=== PATIENT | female | born 1990 | race Caucasian/White ===

== ENCOUNTER 2024-02-26 08:15 | Outpatient (RCR) | payer OTHER, SELFPAY ==
--- NOTE | 2024-02-03 16:00 | OT.OP.EVAL ---
Visit Care Team Role Provider Type EMERALD Mendiola Attending Provider Non-Staff Family Provider Primary Care Provider Referring Provider Specialty: Family Practice Address: [facility] [address], [place], [address] Email: Occupational Therapy Initial Evaluation OT Outpatient Adult Evaluation Start: 02/03/24 15:55 Freq: Status: Active Protocol: Document 02/03/24 15:55 AMS (Rec: 02/03/24 16:16 AMS [id number]) General Information - Adult Insurance Information [employer]; Blake Gaines MD; Pre-auth not required Visit Start Time 14:30 Visit Stop Time 15:15 Treatment Setting Outpatient Care Note Type Initial Evaluation Referring Physician Blake Gaines DNP, PATIENT CARE ( Doctor of Nursing Practice), ( Family Nurse Pract) Goals Cardiology Coordinator Goals 1. Maria A will be modified independent with execution of home exercise program utilizing provided written and /or visual instructions. 2. Maria A will present with improved ability to engage in functional and/or meaningful activities; this will be evidenced by the followina. Maria A will obtain a QuickDASH UE Outcome Measure Score less than or equal to 50 .00 (compared to initial 65.91 score). 2b. Maria A will obtain a QuickDASH Work Module Score less than or equal to 55.00 ( compared to initial 68.75 score). 2c. Maria A will obtain a QuickDASH Sports/Performing Arts Module Score (dancing/ working out) less than or equal to 40.00 (compared to initial 50.00 score). Assessment/Plan Treatment Assessment Maria A is 33 y.o.; R hand dominant; she was referred to outpatient OT d/t R wrist pain . 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 She has a high-low desk and is trying to use her left hand more w/ daily tasks (including feeding herself L handed w/ chopsticks). She had 4 wks of PT treatment in 2019; treatment was limited d/t insurance benefits. She has 2 [id number]-dslsdms braces; limited wearing of braces w/ noted allergic skin reaction to x 1 brace. She has a wrist support on her desk for R handed use; has tried using mouse w/ L hand during 'slower ' work demand times. Medical history is significant for depression, headahces, bilateral ear tubes placed, jaw pain. Whole Body Pain Assessment Grid completed; indication of 3 out of 10 pain morning, 7 out of 10 pain night w/ noted range between 3 -7 depending on task or activities relative to the volar/dorsal surfaces of the R ulnar surface of wrist/ forearm. QuickDASH UE Outcome Measure Score = 65.91; QuickDASH Work Module Score = 68.75; QuickDASH Sports/ Performing Arts Module Score ( dancing/working out) = 50.00. Goniometer AROM measurements were as follows: 0-65 degrees R wrist flex vs 0-71 degrees L wrist flex; 0-70 degrees R wrist ext vs 0-80 degrees L wrist ext; 0-[address] vs 0-[address]; 0-30 degrees bilateral wrist UD. Wrist MMT Strength = 5/5 MMT for bilateral wrist flex, wrist ext, wrist RD, wrist UD. Dynamometer II Strength Testing Results with elbow in 90 degrees Flexion = R banana expert 43 .0# of force (compared to same -aged peers 78.7 +/- 19.2# of force) versus L banana expert 55.0# of force (compared to same-aged peers 68.0 +/- 17.7# of force) . Dynamometer II Strength Testing Results with Elbow Extended = R banana expert 30.0# of force versus L banana expert 63.0# of force. Lateral Mosqueda Pinch = R lateral pinch 11.5# of force (compared to same-aged peers 18.7 +/- 3 .0# of force) versus L lateral pinch 13.5# of force ( compared to same-aged peers 17 .8 +/- 3.6# of force). Tip Pinch = R tip pinch 5.5# of force (compared to same-aged peers 12.6 +/- 3.0# of force) versus L tip pinch 5.0# of force (compared to same-aged peers 11.7 +/- 2.8# of force). 3-Jaw Pinch = R 3-jaw pinch 6 .5# of force (compared to same -aged peers 19.3 +/- 5.0# of force) versus L 3-jaw pinch 8. 0# of force (compared to same- aged peers 18.1 +/- 4.8# of force). Rec OT develops home exercise program (theraputty, ROM exercises), discusses joint protection and discusses conservative measures of pain management. Length of treatment (weeks) 6 Plan of Care Start Date 02/04/24 Plan of Care End Date 03/17/24 Treatment Frequency Once a Week Therapeutic Contents Active Range of Motion, Adaptive Equipment Education, Client Education,Functional Activities,Home Exercise Program,Joint Protection, Education,Neurodevelopment Treatment,Neuromuscular Re- Education,Self-Care,Stretching /Flexibility Activities, Therapeutic Activities, Therapeutic Exercises, Modalities Modalities As Needed,As Prescribed Additional Types of Modalities Heat/Ice/Contrast Baths/ Ultrasound/Paraffin Bath
--- NOTE | 2024-02-12 09:11 | OT.OP.TRT ---
Visit Care Team Role Provider Type EMERALD Mendiola Attending Provider Non-Staff Family Provider Primary Care Provider Referring Provider Specialty: Family Practice Address: [facility] [address], [place], [address] Email: Occupational Therapy Treatment Note OT Outpatient Treatment Note - Adult Start: 02/03/24 15:55 Freq: Status: Active Protocol: Document 02/12/24 09:00 AMS (Rec: 02/12/24 09:11 AMS [id number]) OT Outpatient Adult Treatment Note Session Time Visit Start Time 08:15 Visit Stop Time 08:55 Visit Information Plan of Care Dates 02/04/24 - 03/17/24 Insurance Information [employer]; Blake Gaines MD; Pre-auth not required Setting Treatment Setting Outpatient Care Visit Type Note Type Treatment Note General Information General Information Maria A is 33 y.o.; R hand dominant; she was referred to outpatient OT d/t R wrist pain . 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 She has a high-low desk and is trying to use her left hand more w/ daily tasks (including feeding herself L handed w/ chopsticks). She had 4 wks of PT treatment in 2019; treatment was limited d/t insurance benefits. She has 2 vvet-bzp-xmughuw braces; limited wearing of braces w/ noted allergic skin reaction to x 1 brace. She has a wrist support on her desk for R handed use; has tried using mouse w/ L hand during 'slower ' work demand times. Medical history is significant for depression, headahces, bilateral ear tubes placed, jaw pain. Whole Body Pain Assessment Grid completed; indication of 3 out of 10 pain morning, 7 out of 10 pain night w/ noted range between 3 -7 depending on task or activities relative to the volar/dorsal surfaces of the R ulnar surface of wrist/ forearm. QuickDASH UE Outcome Measure Score = 65.91; QuickDASH Work Module Score = 68.75; QuickDASH Sports/ Performing Arts Module Score ( dancing/working out) = 50.00. - Subjective Identification Type Name Observations Maria A reported some soreness in the R wrist secondary to having to move boxes within her storage unit. Open [employer] project - use of yarn for hair ; also finishing corset component of [employer] ([employer] theme). - Objective Objective Measurements Please refer to below for progress towards meeting established OT goals: School Child Care Attendant Goals 1. Maria A will be modified independent with execution of home exercise program utilizing provided written and /or visual instructions. 2. Maria A will present with improved ability to engage in functional and/or meaningful activities; this will be evidenced by the followina. Maria A will obtain a QuickDASH UE Outcome Measure Score less than or equal to 50 .00 (compared to initial 65.91 score). 2b. Maria A will obtain a QuickDASH Work Module Score less than or equal to 55.00 ( compared to initial 68.75 score). 2c. Maria A will obtain a QuickDASH Sports/Performing Arts Module Score (dancing/ working out) less than or equal to 40.00 (compared to initial 50.00 score). - Exercises 3 Descriptor Wrist strengthening. Wrist ext. Seated. Elbow 90 degrees flex. Use of proximal thigh for stabilization. TB #2 . 3 x 10. Wrist flex. Seated. Elbow 90 degrees flex. Use of proximal thigh for stabilization. TB #2 . [address] Seated. Elbow slightly flexed. Use of TT. TB #2. 3 x 10. Wrist UD. Seated. Elbow slightly flexed. Use of TT. TB #2. 3 x 10. 2 Descriptor UEB. x 5 min. forwards. seated. x 8 min. backwards. seated. 1 Descriptor PROM. Passive wrist ext. Passive wrist flex. x 2. 20-30 sec hold. Passive wrist RD. Passive wrist UD. x 2. 20-30 sec hold. - Assessment Assessment of Improvement Advanced HEP; please see below for details. Recommend introducing theraputty in next treatment session, as well as discussing basic joint protection principles. Rec OT develops home exercise program (theraputty, ROM exercises), discusses joint protection and discusses conservative measures of pain management. Home Exercise Program 02/12/24 = Provided w/ written and visual instructions for passive wrist flex/ext. Rec daily 1-2 and/or as needed. Rec hold for 20-30 sec per stretch. Also provided w/ TB # 2 for home use for wrist strengthening; provided w/ visual and written instructions for resisted wrist flex/ext. Written instructions provided for resisted wrist RD/UD. Written and visual instructions for HEP to be scanned into EMR once front end manager staff are able to do so. - Plan Therapy Recommendations Advance per Rehabilitation Protocol
--- NOTE | 2024-02-18 12:32 | OT.OP.TRT ---
Visit Care Team Role Provider Type EMERALD Mendiola Attending Provider Non-Staff Family Provider Primary Care Provider Referring Provider Specialty: Family Practice Address: [facility] [address], [place], [address] Email: Occupational Therapy Treatment Note OT Outpatient Treatment Note - Adult Start: 02/03/24 15:55 Freq: Status: Active Protocol: Document 02/18/24 12:25 AMS (Rec: 02/18/24 12:32 AMS [id number]) OT Outpatient Adult Treatment Note Session Time Visit Start Time 09:00 Visit Stop Time 09:42 Visit Information Plan of Care Dates 02/04/24 - 03/17/24 Insurance Information [employer]; Blake Gaines MD; Pre-auth not required Setting Treatment Setting Outpatient Care Visit Type Note Type Treatment Note General Information General Information Maria A is 33 y.o.; R hand dominant; she was referred to outpatient OT d/t R wrist pain . 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 She has a high-low desk and is trying to use her left hand more w/ daily tasks (including feeding herself L handed w/ chopsticks). She had 4 wks of PT treatment in 2019; treatment was limited d/t insurance benefits. She has 2 hnck-ngy-cvbsajz braces; limited wearing of braces w/ noted allergic skin reaction to x 1 brace. She has a wrist support on her desk for R handed use; has tried using mouse w/ L hand during 'slower ' work demand times. Medical history is significant for depression, headahces, bilateral ear tubes placed, jaw pain. Whole Body Pain Assessment Grid completed; indication of 3 out of 10 pain morning, 7 out of 10 pain night w/ noted range between 3 -7 depending on task or activities relative to the volar/dorsal surfaces of the R ulnar surface of wrist/ forearm. QuickDASH UE Outcome Measure Score = 65.91; QuickDASH Work Module Score = 68.75; QuickDASH Sports/ Performing Arts Module Score ( dancing/working out) = 50.00. - Subjective Identification Type Name Observations Maria A reported sewing for 8 hours previous day; pulsing pain and uncomfortable were descriptors of R wrist. Report of taking Ibuprofen this morning; however, med 'hadn't kicked in' by time of session. She is going on vacation w/ her to [place]. She cont to work on her [employer]. (+) awareness of trying to keep her wrist in neutral when completing tasks ; however, this has been difficulty d/t the nature of beadwork she has to do on her costume. - Objective Objective Measurements Please refer to below for progress towards meeting established OT goals: Bearing Ring Assembler Goals 1. Maria A will be modified independent with execution of home exercise program utilizing provided written and /or visual instructions. 2. Maria A will present with improved ability to engage in functional and/or meaningful activities; this will be evidenced by the followina. Maria A will obtain a QuickDASH UE Outcome Measure Score less than or equal to 50 .00 (compared to initial 65.91 score). 2b. Maria A will obtain a QuickDASH Work Module Score less than or equal to 55.00 ( compared to initial 68.75 score). 2c. Maria A will obtain a QuickDASH Sports/Performing Arts Module Score (dancing/ working out) less than or equal to 40.00 (compared to initial 50.00 score). - Exercises 5 Descriptor Angled trampoline. 2.2# R handed throw and 2 handed catch. x 50 reps. 2.2# L handed throw and 2 handed catch. x 50 reps. 4 Descriptor Forearm strengthening. Weighted ball pass. R <-> L. 3 .3# spherical ball. 5 x 10. 3 Descriptor Wrist strengthening. Wrist ext. Seated. Elbow 90 degrees flex. Use of proximal thigh for stabilization. TB #2 . 3 x 10. Wrist flex. Seated. Elbow 90 degrees flex. Use of proximal thigh for stabilization. TB #2 . [address] Seated. Elbow slightly flexed. Use of TT. TB #2. 3 x 10. Wrist UD. Seated. Elbow slightly flexed. Use of TT. TB #2. 3 x 10. 2 Descriptor UEB. x 10 min. forwards. seated. 1 Descriptor PROM. Passive wrist ext. Passive wrist flex. x 2. 20-30 sec hold. Passive wrist RD. Passive wrist UD. x 2. 20-30 sec hold. Tendon glides. x 5 repetitions . - Assessment Assessment of Improvement Reviewed HEP w/ TB #2; advanced therapeutic exercises /activities completed in treatment session. Verbalized awareness of need to keep R wrist in neutral as much as she can w/ various task completion. Recommend introducing theraputty in next treatment session, as well as discussing basic joint protection principles. Rec OT develops home exercise program (theraputty, ROM exercises), discusses joint protection and discusses conservative measures of pain management. Home Exercise Program 02/12/24 = Provided w/ written and visual instructions for passive wrist flex/ext. Rec daily 1-2 and/or as needed. Rec hold for 20-30 sec per stretch. Also provided w/ TB # 2 for home use for wrist strengthening; provided w/ visual and written instructions for resisted wrist flex/ext. Written instructions provided for resisted wrist RD/UD. Written and visual instructions for HEP to be scanned into EMR once supervisor front staff are able to do so. - Plan Therapy Recommendations Advance per Rehabilitation Protocol
--- NOTE | 2024-02-26 09:22 | OT.OP.TRT ---
Visit Care Team Role Provider Type EMERALD Mendiola Attending Provider Non-Staff Family Provider Primary Care Provider Referring Provider Specialty: Family Practice Address: [facility] [address], [place], [address] Email: Occupational Therapy Treatment Note OT Outpatient Treatment Note - Adult Start: 02/03/24 15:55 Freq: Status: Active Protocol: Document 02/26/24 09:17 AMS (Rec: 02/26/24 09:22 AMS [id number]) OT Outpatient Adult Treatment Note Session Time Visit Start Time 08:15 Visit Stop Time 09:00 Visit Information Plan of Care Dates 02/04/24 - 03/17/24 Insurance Information [employer]; Blake Gaines MD; Pre-auth not required Setting Treatment Setting Outpatient Care Visit Type Note Type Treatment Note General Information General Information Maria A is 33 y.o.; R hand dominant; she was referred to outpatient OT d/t R wrist pain . 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 She has a high-low desk and is trying to use her left hand more w/ daily tasks (including feeding herself L handed w/ chopsticks). She had 4 wks of PT treatment in 2019; treatment was limited d/t insurance benefits. She has 2 qcyt-yto-rrvrskd braces; limited wearing of braces w/ noted allergic skin reaction to x 1 brace. She has a wrist support on her desk for R handed use; has tried using mouse w/ L hand during 'slower ' work demand times. Medical history is significant for depression, headahces, bilateral ear tubes placed, jaw pain. Whole Body Pain Assessment Grid completed; indication of 3 out of 10 pain morning, 7 out of 10 pain night w/ noted range between 3 -7 depending on task or activities relative to the volar/dorsal surfaces of the R ulnar surface of wrist/ forearm. QuickDASH UE Outcome Measure Score = 65.91; QuickDASH Work Module Score = 68.75; QuickDASH Sports/ Performing Arts Module Score ( dancing/working out) = 50.00. - Subjective Identification Type Name Observations Maria A reported sewing for 8 hours previous day; pulsing pain and uncomfortable were descriptors of R wrist. Report of taking Ibuprofen this morning; however, med 'hadn't kicked in' by time of session. She is going on vacation w/ her to [place]. She cont to work on her [employer]. (+) awareness of trying to keep her wrist in neutral when completing tasks ; however, this has been difficulty d/t the nature of beadwork she has to do on her costume. - Objective Objective Measurements Please refer to below for progress towards meeting established OT goals: Pneumatic Tool Operator Goals 1. Maria A will be modified independent with execution of home exercise program utilizing provided written and /or visual instructions. 2. Maria A will present with improved ability to engage in functional and/or meaningful activities; this will be evidenced by the followina. Maria A will obtain a QuickDASH UE Outcome Measure Score less than or equal to 50 .00 (compared to initial 65.91 score). 2b. Maria A will obtain a QuickDASH Work Module Score less than or equal to 55.00 ( compared to initial 68.75 score). 2c. Maria A will obtain a QuickDASH Sports/Performing Arts Module Score (dancing/ working out) less than or equal to 40.00 (compared to initial 50.00 score). - Exercises 5 Descriptor Angled trampoline. 2.2# R handed throw and 2 handed catch. x 50 reps. 2.2# L handed throw and 2 handed catch. x 50 reps. 4 Descriptor Forearm strengthening. Weighted ball pass. R <-> L. 3 .3# spherical ball. 5 x 10. 3 Descriptor Wrist strengthening. Wrist ext. Seated. Elbow 90 degrees flex. Use of proximal thigh for stabilization. TB #2 . 3 x 10. Wrist flex. Seated. Elbow 90 degrees flex. Use of proximal thigh for stabilization. TB #2 . [address] Seated. Elbow slightly flexed. Use of TT. TB #2. 3 x 10. Wrist UD. Seated. Elbow slightly flexed. Use of TT. TB #2. 3 x 10. 2 Descriptor UEB. x 10 min. forwards. seated. 1 Descriptor PROM. Passive wrist ext. Passive wrist flex. x 2. 20-30 sec hold. Passive wrist [address]. Passive wrist UD. x 2. 20-30 sec hold. Tendon glides. x 5 repetitions . - Assessment Assessment of Improvement Reviewed HEP w/ TB #2 and passive range of motion exercises/tendon glides; also instructed in passive wrist/ digit ext w/ slight UD or RD to provide increased stretch to radial and/or ulnar compartments of volar surfaces of R wrist. Verbalized awareness of need to keep R wrist in neutral as much as she can w/ various task completion. R wrist brace reportedly does not provide relief; intermittently ices the wrist. (+) awareness of sitting slightly distal to work desk d/t chords beneath desk. Uses chord based mouse. (+) considering requesting stand-up desk at work; has to speak to publication manager to explore this option for work station. Recommend introducing theraputty in next treatment session, as well as discussing basic joint protection principles. Could also explore manual w/ use of ball; currently executing manual w/ L hand intermittently. Rec OT develops home exercise program (theraputty, ROM exercises), discusses joint protection and discusses conservative measures of pain management. Home Exercise Program 02/12/24 = Provided w/ written and visual instructions for passive wrist flex/ext. Rec daily 1-2 and/or as needed. Rec hold for 20-30 sec per stretch. Also provided w/ TB # 2 for home use for wrist strengthening; provided w/ visual and written instructions for resisted wrist flex/ext. Written instructions provided for resisted wrist RD/UD. Written and visual instructions for HEP to be scanned into EMR once front desk lead staff are able to do so. - Plan Therapy Recommendations Advance per Rehabilitation Protocol
--- NOTE | 2024-03-28 10:37 | OT.OP.DC ---
Visit Care Team Role Provider Type EMERALD Mendiola Attending Provider Non-Staff Family Provider Primary Care Provider Referring Provider Address: [facility] [id number], [place], [address] Email: OT Outpatient OT Outpatient Adult Evaluation Start: 02/03/24 15:55 Freq: Status: Active Protocol: Document 02/03/24 15:55 AMS (Rec: 02/03/24 16:16 AMS [id number]) General Information - Adult Visit Information Insurance Information [employer]; Blake Gaines MD; Pre-auth not required Session Time Visit Start Time 14:30 Visit Stop Time 15:15 Setting Treatment Setting Outpatient Care Visit Type Note Type Initial Evaluation Referral Referring Physician Blake Gaines DNP, PIPELINE SUPERINTENDENT ( Doctor of Nursing Practice), ( Family Nurse Pract) Goals Group Home Goals Group Home Goals 1. Maria A will be modified independent with execution of home exercise program utilizing provided written and /or visual instructions. 2. Maria A will present with improved ability to engage in functional and/or meaningful activities; this will be evidenced by the followina. Maria A will obtain a QuickDASH UE Outcome Measure Score less than or equal to 50 .00 (compared to initial 65.91 score). 2b. Maria A will obtain a QuickDASH Work Module Score less than or equal to 55.00 ( compared to initial 68.75 score). 2c. Maria A will obtain a QuickDASH Sports/Performing Arts Module Score (dancing/ working out) less than or equal to 40.00 (compared to initial 50.00 score). Assessment/Plan Assessment Treatment Assessment Maria A is 33 y.o.; R hand dominant; she was referred to outpatient OT d/t R wrist pain . 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 She has a high-low desk and is trying to use her left hand more w/ daily tasks (including feeding herself L handed w/ chopsticks). She had 4 wks of PT treatment in 2019; treatment was limited d/t insurance benefits. She has 2 oxfy-bme-toydloj braces; limited wearing of braces w/ noted allergic skin reaction to x 1 brace. She has a wrist support on her desk for R handed use; has tried using mouse w/ L hand during 'slower ' work demand times. Medical history is significant for depression, headahces, bilateral ear tubes placed, jaw pain. Whole Body Pain Assessment Grid completed; indication of 3 out of 10 pain morning, 7 out of 10 pain night w/ noted range between 3 -7 depending on task or activities relative to the volar/dorsal surfaces of the R ulnar surface of wrist/ forearm. QuickDASH UE Outcome Measure Score = 65.91; QuickDASH Work Module Score = 68.75; QuickDASH Sports/ Performing Arts Module Score ( dancing/working out) = 50.00. Goniometer AROM measurements were as follows: 0-65 degrees R wrist flex vs 0-71 degrees L wrist flex; 0-70 degrees R wrist ext vs 0-80 degrees L wrist ext; 0-[address] vs 0-[address]; 0-30 degrees bilateral wrist UD. Wrist MMT Strength = 5/5 MMT for bilateral wrist flex, wrist ext, wrist RD, wrist UD. Dynamometer II Strength Testing Results with elbow in 90 degrees Flexion = R satellite instruction facilitator 43 .0# of force (compared to same -aged peers 78.7 +/- 19.2# of force) versus L satellite instruction facilitator 55.0# of force (compared to same-aged peers 68.0 +/- 17.7# of force) . Dynamometer II Strength Testing Results with Elbow Extended = R satellite instruction facilitator 30.0# of force versus L satellite instruction facilitator 63.0# of force. Lateral [place] Pinch = R lateral pinch 11.5# of force (compared to same-aged peers 18.7 +/- 3 .0# of force) versus L lateral pinch 13.5# of force ( compared to same-aged peers 17 .8 +/- 3.6# of force). Tip Pinch = R tip pinch 5.5# of force (compared to same-aged peers 12.6 +/- 3.0# of force) versus L tip pinch 5.0# of force (compared to same-aged peers 11.7 +/- 2.8# of force). 3-Jaw Pinch = R 3-jaw pinch 6 .5# of force (compared to same -aged peers 19.3 +/- 5.0# of force) versus L 3-jaw pinch 8. 0# of force (compared to same- aged peers 18.1 +/- 4.8# of force). Rec OT develops home exercise program (theraputty, ROM exercises), discusses joint protection and discusses conservative measures of pain management. Plan Length of treatment (weeks) 6 Plan of Care Start Date 02/04/24 Plan of Care End Date 03/17/24 Treatment Frequency Once a Week Therapeutic Contents Active Range of Motion, Adaptive Equipment Education, Client Education,Functional Activities,Home Exercise Program,Joint Protection, Education,Neurodevelopment Treatment,Neuromuscular Re- Education,Self-Care,Stretching /Flexibility Activities, Therapeutic Activities, Therapeutic Exercises, Modalities Modalities As Needed,As Prescribed Additional Types of Modalities Heat/Ice/Contrast Baths/ Ultrasound/Paraffin Bath Functional Wrist/Hand Scan Hand Side Sensory Assessment Sensory Profile2 OT Outpatient Treatment Note - Adult Start: 02/03/24 15:55 Freq: Status: Active Protocol: Document 03/28/24 10:35 AMS (Rec: 03/28/24 10:37 AMS [id number]) OT Outpatient Adult Treatment Note Visit Information Plan of Care Dates 02/04/24 - 03/17/24 Insurance Information Mena Infante; Blake Gaines MD; Pre-auth not required Setting Treatment Setting Outpatient Care Visit Type Note Type Discharge Summary General Information General Information Maria A is 33 y.o.; R hand dominant; she was referred to outpatient OT d/t R wrist pain . 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 She has a high-low desk and is trying to use her left hand more w/ daily tasks (including feeding herself L handed w/ chopsticks). She had 4 wks of PT treatment in 2019; treatment was limited d/t insurance benefits. She has 2 fdki-wlo-jqbrhgg braces; limited wearing of braces w/ noted allergic skin reaction to x 1 brace. She has a wrist support on her desk for R handed use; has tried using mouse w/ L hand during 'slower ' work demand times. Medical history is significant for depression, headahces, bilateral ear tubes placed, jaw pain. Whole Body Pain Assessment Grid completed; indication of 3 out of 10 pain morning, 7 out of 10 pain night w/ noted range between 3 -7 depending on task or activities relative to the volar/dorsal surfaces of the R ulnar surface of wrist/ forearm. QuickDASH UE Outcome Measure Score = 65.91; QuickDASH Work Module Score = 68.75; QuickDASH Sports/ Performing Arts Module Score ( dancing/working out) = 50.00. - Subjective Observations Maria A has not been seen in the outpatient clinic since and her outpatient POC on 03/17/24; thus, recommend d/c from outpatient OT at this time and re- evaluate as deemed appropriate by PCP with receipt of new referral. - Objective Objective Measurements Please refer to below for progress towards meeting established OT goals: Biodiesel Processing Technician Goals ALL GOALS D/C 03/28/24 1. Maria A will be modified independent with execution of home exercise program utilizing provided written and /or visual instructions. 2. Maria A will present with improved ability to engage in functional and/or meaningful activities; this will be evidenced by the followina. Maria A will obtain a QuickDASH UE Outcome Measure Score less than or equal to 50 .00 (compared to initial 65.91 score). 2b. Maria A will obtain a QuickDASH Work Module Score less than or equal to 55.00 ( compared to initial 68.75 score). 2c. Maria A will obtain a QuickDASH Sports/Performing Arts Module Score (dancing/ working out) less than or equal to 40.00 (compared to initial 50.00 score). - - Assessment Assessment of Improvement Maria A has not been seen in the outpatient clinic since and her outpatient POC on 03/17/24; thus, recommend d/c from outpatient OT at this time and re- evaluate as deemed appropriate by PCP with receipt of new referral. - Plan Therapy Recommendations Discharge from Occupational Therapy
== END 2024-04-08 11:08 | disposition home or self-care (01) ==
LOC: OT 08:15
DX: M25.531 Pain in right wrist (principal)
CPT/HCPCS: 97110; 97165